=== PATIENT | female | born 1960 | race Caucasian/White ===

== ENCOUNTER 2018-02-26 18:12 | Emergency (ER) | payer MEDICAID ==
[~2018-02-26] VITALS: Ht 160 cm; Wt 70.0 kg
[2018-02-26] MEDS ORDERED: HYDROCODONE/ACETAMINOPHEN 5/325MG TABLET PO ONE (23:30)
[2018-02-27 01:44] LABS: BASOPHILS % 0.7 % (0.0-2.0); EOSINOPHILS % 3.6 % (0.0-5.0); HEMOGLOBIN. 7.8 g/dL (12.0-16.0); LYMPHOCYTES % 10.1 % (20.0-50.0); MEAN CORPUSCULAR HEMOGLOBIN 30.8 pg (28.0-32.0); MEAN CORPUSCULAR VOLUME 91.3 fL (81.0-99.0); MEAN PLATELET VOLUME 8.4 fl (7.4-10.4); MONOCYTES % 9.3 % (2.0-8.0); NEUTROPHILS % 76.3 % (40.0-76.0); PLATELET 136 x1000/uL (130-400); RED BLOOD CELL COUNT 2.52 mill/uL (4.2-5.4)
[2018-02-27 04:45] VITALS: BP 153/99
== END 2018-02-27 05:10 | disposition home or self-care (01) ==
LOC: ER 18:12
DX: S40.011A Contusion of right shoulder, initial encounter (principal); S09.8XXA Other specified injuries of head, initial encounter; D64.9 Anemia, unspecified; I10 Essential (primary) hypertension; W07.XXXA Fall from chair, initial encounter; Y93.89 Activity, other specified; Y92.89 Other specified places as the place of occurrence of the external cause; Y99.8 Other external cause status; Z86.73 Personal history of transient ischemic attack (TIA), and cerebral infarction without residual deficits
CPT/HCPCS: 36415; 71045; 73030; 80048; 99285

== ENCOUNTER 2018-07-21 14:27 | Inpatient (IN) | payer MEDICAID ==
[~2018-07-21] VITALS: Ht 154.9 cm; Wt 84.4 kg
[2018-07-21] MEDS ORDERED: ONDANSETRON HCL 4MG/2ML INJ IV STA (21:43)
[2018-07-21] MEDS ORDERED: MORPHINE SULFATE 4 MG/ML CPJ (NOT FOR IM USE) IV STA (21:43)
[2018-07-21 23:13] LABS: BASOPHILS % 1.4 % (0.0-2.0); EOSINOPHILS % 4.5 % (0.0-5.0); HEMATOCRIT. 25.7 % (36.0-48.0); HEMOGLOBIN. 8.5 g/dL (12.0-16.0); LYMPHOCYTES % 16.5 % (20.0-50.0); MEAN CORPUSCULAR HEMOGLOBIN 29.7 pg (28.0-32.0); MEAN CORPUSCULAR VOLUME 89.9 fL (81.0-99.0); MONOCYTES % 7.1 % (2.0-8.0); NEUTROPHILS % 70.5 % (40.0-76.0); PLATELET 205 x1000/uL (130-400); RED BLOOD CELL COUNT 2.86 mill/uL (4.2-5.4); RED CELL DISTRIBUTION WIDTH 17.1 % (11.6-14.6)
[2018-07-21 23:19] LABS: CHLORIDE 98 mEq/L (98-107)
[2018-07-21 23:24] LABS: INR 1.2; PARTIAL THROMBOPLASTIN TIME 31.7 sec (23.4-31.0); PROTHROMBIN TIME 11.7 sec (9.1-11.1)
[2018-07-22] MEDS ORDERED: INSULIN REGULAR (HUMULIN R) 300UNITS/3ML IV ONE (00:30)
[2018-07-22] MEDS ORDERED: SODIUM POLYSTYRENE SULFONATE 15 G/60 ML BOT PO ONE (00:30)
[2018-07-22] MEDS ORDERED: DEXTROSE 50% WATER 50ML SYRINGE IV ONE (00:30)
[2018-07-22] MEDS ORDERED: SODIUM BICARBONATE 8.4% 1 MEQ/ML 50ML SYR IV ONE (00:30)
[2018-07-22] MEDS ORDERED: ALBUTEROL (0.083%) 2.5MG/3ML NEB HHN ONE (00:30)
[2018-07-22] MEDS ORDERED: ALBUTEROL (0.5%) 2.5MG/0.5ML NEB HHN ONE (01:07)
[2018-07-22] MEDS: MORPHINE SULFATE 4 MG/ML CPJ (NOT FOR IM USE) IV PRN ×3 (05:52→17:25)
[2018-07-22] MEDS ORDERED: MAGNESIUM/ALUMINUM HYDROXIDE/SIMETHICONE 30ML UDC PO PRN (09:15)
[2018-07-22] MEDS ORDERED: CLONIDINE 0.1MG TABLET PO PRN (09:15)
[2018-07-22] MEDS ORDERED: DOCUSATE SODIUM 100MG CAPSULE PO PRN (09:15)
[2018-07-22] MEDS ORDERED: ONDANSETRON HCL 4MG/2ML INJ IV PRN (09:15)
[2018-07-22] MEDS ORDERED: GUAIFENESIN 200MG/10ML SUGAR FREE UDC PO PRN (09:15)
[2018-07-22] MEDS ORDERED: IPRATROPIUM/ALBUTEROL 0.5-3(2.5)MG/3ML NEB INH PRN (09:15)
[2018-07-22] MEDS: HYDROCODONE/ACETAMINOPHEN 5/325MG TABLET PO PRN ×2 (11:11→20:50)
[2018-07-22 11:17] LABS: PHOSPHORUS 5.7 mg/dL (2.5-4.9)
[2018-07-22 14:14] VITALS: BP 101/53
[2018-07-22] MEDS ORDERED: PNEUMOCOCCAL 23-VAL P-SAC VAC 0.5 ML IM ONE (16:00)
[2018-07-22] MEDS: LOSARTAN POTASSIUM 25 MG TABLET PO SCH (16:50)
[2018-07-22] MEDS ORDERED: METH500T6 MT (17:43)
[2018-07-22] MEDS ORDERED: ASPI-1158 MT (17:43)
[2018-07-22] MEDS ORDERED: SENN-46 MT (17:43)
[2018-07-22] MEDS ORDERED: VITA1CAP MT (17:43)
[2018-07-22] MEDS ORDERED: REN800 MT (17:43)
[2018-07-22] MEDS ORDERED: ATOR40TA70 MT (17:43)
[2018-07-22] MEDS ORDERED: LEVO100T9 MT (17:43)
[2018-07-22] MEDS ORDERED: FERR325T6 MT (17:43)
[2018-07-22] MEDS ORDERED: POLY1POW14 MC (17:43)
[2018-07-22] MEDS ORDERED: AMLO5TAB88 MT (17:43)
[2018-07-22] MEDS ORDERED: CARV3.1242 MT (17:43)
[2018-07-22] MEDS ORDERED: FOLI-43 MT (17:43)
[2018-07-22] MEDS ORDERED: POLY17PO19 PO (17:43)
[2018-07-22] MEDS ORDERED: HYDR-4001 MT (17:43)
[2018-07-22 20:00] VITALS: BP 132/68
[2018-07-22] MEDS: AMLODIPINE 5MG TABLET PO SCH (20:51)
[2018-07-22] MEDS: EPOETIN ALFA 10000UNITS/ML VIAL SUBCUT SCH (20:51)
[2018-07-22] MEDS: IRON SUCROSE COMPLEX 100 MG/5 ML ML IV SCH (21:05)
[2018-07-22] MEDS ORDERED: TUBERCULIN,PURIF.PROT.DERIV. 5 TU/0.1 ML SYR ID ONE (23:00)
[2018-07-23] VITALS: BP 140/70
[2018-07-23] MEDS: HYDROCODONE/ACETAMINOPHEN 5/325MG TABLET PO PRN ×2 (02:49→17:43)
[2018-07-23 04:00] VITALS: BP 120/67
[2018-07-23 08:00] VITALS: BP 160/82
[2018-07-23 12:00] VITALS: BP 115/53
[2018-07-23] MEDS: LOSARTAN POTASSIUM 25 MG TABLET PO SCH ×2 (12:01→16:03)
[2018-07-23] MEDS: AMLODIPINE 5MG TABLET PO SCH ×2 (12:02→20:29)
[2018-07-23] MEDS: MORPHINE SULFATE 4 MG/ML CPJ (NOT FOR IM USE) IV PRN ×3 (12:02→20:28)
[2018-07-23 16:00] VITALS: BP 131/68
[2018-07-23] MEDS: SODIUM HYPOCHLORITE 0.125% 473ML SOLUTION TOP SCH (16:03)
[2018-07-23] MEDS: NYSTATIN POWDER 15GM TOP SCH ×2 (16:03→22:00)
[2018-07-23 20:00] VITALS: BP 152/86
[2018-07-23] MEDS: IRON SUCROSE COMPLEX 100 MG/5 ML ML IV SCH (20:28)
[2018-07-23] MEDS: EPOETIN ALFA 10000UNITS/ML VIAL SUBCUT SCH (20:29)
[2018-07-23] MEDS: DIPHENHYDRAMINE 50MG/ML VIAL IV PRN (21:46)
[2018-07-24] MEDS: DIPHENHYDRAMINE 50MG/ML VIAL IV PRN ×2 (00:23→17:12)
[2018-07-24] MEDS: MORPHINE SULFATE 4 MG/ML CPJ (NOT FOR IM USE) IV PRN ×4 (00:33→20:27)
[2018-07-24 04:00] VITALS: BP 147/75
[2018-07-24] MEDS: NYSTATIN POWDER 15GM TOP SCH ×3 (06:52→21:15)
[2018-07-24 08:08] VITALS: BP 136/63
[2018-07-24] MEDS: AMLODIPINE 5MG TABLET PO SCH ×2 (08:10→20:27)
[2018-07-24] MEDS: SODIUM HYPOCHLORITE 0.125% 473ML SOLUTION TOP SCH (08:10)
[2018-07-24] MEDS: LOSARTAN POTASSIUM 25 MG TABLET PO SCH ×2 (08:10→16:42)
[2018-07-24 09:00] LABS: EOSINOPHILS % 3.9 % (0.0-5.0); HEMATOCRIT. 28.6 % (36.0-48.0); HEMOGLOBIN. 9.5 g/dL (12.0-16.0); LYMPHOCYTES % 12.5 % (20.0-50.0); MEAN CORPUSCULAR HEMOGLOBIN 29.7 pg (28.0-32.0); MONOCYTES % 6.1 % (2.0-8.0); NEUTROPHILS % 76.5 % (40.0-76.0); PLATELET 254 x1000/uL (130-400); RED BLOOD CELL COUNT 3.18 mill/uL (4.2-5.4); RED CELL DISTRIBUTION WIDTH 16.9 % (11.6-14.6)
[2018-07-24 09:28] LABS: CHLORIDE 103 mEq/L (98-107)
[2018-07-24 09:42] LABS: FOLIC ACID (FOLATE) SERUM >20 ng/mL ng/mL (>5.38)
[2018-07-24 09:45] LABS: LDL CHOLESTEROL 39 mg/dL (5-100)
[2018-07-24 09:47] LABS: CREATINE KINASE 134 IU/L (26-192)
[2018-07-24 09:49] LABS: HDL CHOLESTEROL 36 mg/dL (40-59)
[2018-07-24 09:51] LABS: CREATINE KINASE MB FRACTION 6.4 ng/mL (0.5-3.6)
[2018-07-24 09:53] LABS: VITAMIN B12 SERUM 763 pg/mL (211-911)
[2018-07-24 11:59] VITALS: BP 147/63
[2018-07-24] MEDS ORDERED: VANCOMYCIN HCL 500 MG/VIAL ONE (15:00)
[2018-07-24] MEDS ORDERED: BACITRACIN 15GM TUBE TOP ONE (15:00)
[2018-07-24 16:00] VITALS: BP 125/65
[2018-07-24] MEDS ORDERED: POTASSIUM CHLORIDE 20MEQ TABLET SR PO NR (16:15)
[2018-07-24 20:12] VITALS: BP 135/90
[2018-07-24] MEDS: IRON SUCROSE COMPLEX 100 MG/5 ML ML IV SCH (20:27)
[2018-07-24] MEDS: EPOETIN ALFA 10000UNITS/ML VIAL SUBCUT SCH (21:00)
[2018-07-25] VITALS: BP 146/84
[2018-07-25] MEDS: MORPHINE SULFATE 4 MG/ML CPJ (NOT FOR IM USE) IV PRN ×3 (01:08→20:11)
[2018-07-25] MEDS: DIPHENHYDRAMINE 50MG/ML VIAL IV PRN ×3 (03:31→21:07)
[2018-07-25 04:00] VITALS: BP 135/72
[2018-07-25] MEDS: NYSTATIN POWDER 15GM TOP SCH ×3 (05:40→20:13)
[2018-07-25 07:13] LABS: BASOPHILS % 0.5 % (0.0-2.0); EOSINOPHILS % 1.5 % (0.0-5.0); HEMATOCRIT. 28.1 % (36.0-48.0); HEMOGLOBIN. 9.3 g/dL (12.0-16.0); MEAN CORPUSCULAR HEMOGLOBIN 30.1 pg (28.0-32.0); MEAN CORPUSCULAR VOLUME 90.6 fL (81.0-99.0); MEAN PLATELET VOLUME 7.2 fl (7.4-10.4); MONOCYTES % 5.6 % (2.0-8.0); NEUTROPHILS % 80.4 % (40.0-76.0); PLATELET 251 x1000/uL (130-400); RED CELL DISTRIBUTION WIDTH 16.9 % (11.6-14.6)
[2018-07-25 08:00] VITALS: BP 126/69
[2018-07-25] MEDS: LOSARTAN POTASSIUM 25 MG TABLET PO SCH ×2 (08:59→16:18)
[2018-07-25] MEDS: AMLODIPINE 5MG TABLET PO SCH ×2 (08:59→20:14)
[2018-07-25] MEDS: SODIUM HYPOCHLORITE 0.125% 473ML SOLUTION TOP SCH (11:14)
[2018-07-25 12:00] VITALS: BP 131/67
[2018-07-25 20:00] VITALS: BP 141/78
[2018-07-25] MEDS: IRON SUCROSE COMPLEX 100 MG/5 ML ML IV SCH (20:12)
[2018-07-25] MEDS: EPOETIN ALFA 10000UNITS/ML VIAL SUBCUT SCH (20:13)
[2018-07-26] VITALS: BP 142/81
[2018-07-26] MEDS: ACETAMINOPHEN 325MG TABLET PO PRN ×2 (00:50→21:10)
[2018-07-26] MEDS: DIPHENHYDRAMINE 50MG/ML VIAL IV PRN ×2 (01:10→22:37)
[2018-07-26] MEDS: MORPHINE SULFATE 4 MG/ML CPJ (NOT FOR IM USE) IV PRN ×4 (02:46→21:11)
[2018-07-26 04:00] VITALS: BP 122/68
[2018-07-26] MEDS: NYSTATIN POWDER 15GM TOP SCH ×3 (06:02→22:33)
[2018-07-26 08:00] VITALS: BP_SYST 136; BP_SYST 140; BP_DIAS 70; BP_DIAS 72
[2018-07-26] MEDS: LOSARTAN POTASSIUM 25 MG TABLET PO SCH ×2 (08:47→17:50)
[2018-07-26] MEDS: SODIUM HYPOCHLORITE 0.125% 473ML SOLUTION TOP SCH (08:48)
[2018-07-26] MEDS: AMLODIPINE 5MG TABLET PO SCH ×2 (08:48→21:10)
[2018-07-26 09:58] LABS: BASOPHILS % 0.8 % (0.0-2.0); EOSINOPHILS % 2.5 % (0.0-5.0); HEMOGLOBIN. 9.5 g/dL (12.0-16.0); LYMPHOCYTES % 11.6 % (20.0-50.0); MEAN CORPUSCULAR HEMOGLOBIN 29.4 pg (28.0-32.0); MEAN CORPUSCULAR VOLUME 89.8 fL (81.0-99.0); MONOCYTES % 6.7 % (2.0-8.0); NEUTROPHILS % 78.4 % (40.0-76.0); PLATELET 256 x1000/uL (130-400); RED BLOOD CELL COUNT 3.23 mill/uL (4.2-5.4); RED CELL DISTRIBUTION WIDTH 17.5 % (11.6-14.6)
[2018-07-26 12:00] VITALS: BP 136/72
[2018-07-26 16:00] VITALS: BP 115/64
[2018-07-26 20:00] VITALS: BP 121/70
[2018-07-26] MEDS: IRON SUCROSE COMPLEX 100 MG/5 ML ML IV SCH (21:10)
[2018-07-26] MEDS: EPOETIN ALFA 10000UNITS/ML VIAL SUBCUT SCH (22:33)
[2018-07-27] VITALS: BP 113/62
[2018-07-27 04:00] VITALS: BP 106/64
[2018-07-27] MEDS ORDERED: MORPHINE SULFATE 4 MG/ML CPJ (NOT FOR IM USE) IV PRN (05:30)
[2018-07-27] MEDS: NYSTATIN POWDER 15GM TOP SCH ×3 (05:38→21:58)
[2018-07-27 06:36] LABS: BASOPHILS % 0.7 % (0.0-2.0); EOSINOPHILS % 4.4 % (0.0-5.0); HEMATOCRIT. 27.9 % (36.0-48.0); HEMOGLOBIN. 9.1 g/dL (12.0-16.0); LYMPHOCYTES % 16.9 % (20.0-50.0); MEAN CORPUSCULAR HEMOGLOBIN 29.4 pg (28.0-32.0); MEAN CORPUSCULAR VOLUME 90.3 fL (81.0-99.0); MONOCYTES % 8.6 % (2.0-8.0); NEUTROPHILS % 69.4 % (40.0-76.0); PLATELET 236 x1000/uL (130-400); RED BLOOD CELL COUNT 3.09 mill/uL (4.2-5.4); RED CELL DISTRIBUTION WIDTH 18.1 % (11.6-14.6)
[2018-07-27 08:00] VITALS: BP_SYST 105; BP_SYST 112; BP_DIAS 63; BP_DIAS 68
[2018-07-27] MEDS: LOSARTAN POTASSIUM 25 MG TABLET PO SCH ×2 (09:00→16:27)
[2018-07-27] MEDS: AMLODIPINE 5MG TABLET PO SCH ×2 (09:00→20:29)
[2018-07-27 12:00] VITALS: BP 112/68
[2018-07-27] MEDS: MORPHINE SULFATE 4 MG/ML CPJ (NOT FOR IM USE) IV PRN ×2 (12:53→20:28)
[2018-07-27] MEDS: DIPHENHYDRAMINE 50MG/ML VIAL IV PRN (14:55)
[2018-07-27] MEDS: SODIUM HYPOCHLORITE 0.125% 473ML SOLUTION TOP SCH (15:05)
[2018-07-27 16:00] VITALS: BP 119/97
[2018-07-27] MEDS: CEFTRIAXONE 1 G PREMIX 50 ML IV SCH (16:23)
[2018-07-27 20:00] VITALS: BP 129/74
[2018-07-27] MEDS: EPOETIN ALFA 10000UNITS/ML VIAL SUBCUT SCH (20:45)
[2018-07-28] VITALS: BP 109/63
[2018-07-28] MEDS: MORPHINE SULFATE 4 MG/ML CPJ (NOT FOR IM USE) IV PRN ×3 (01:37→19:02)
[2018-07-28 04:00] VITALS: BP 101/52
[2018-07-28] MEDS: NYSTATIN POWDER 15GM TOP SCH ×3 (05:11→22:04)
[2018-07-28] MEDS: ACETAMINOPHEN 325MG TABLET PO PRN (05:35)
[2018-07-28 08:00] VITALS: BP 99/59
[2018-07-28] MEDS: SODIUM HYPOCHLORITE 0.125% 473ML SOLUTION TOP SCH (08:48)
[2018-07-28] MEDS: AMLODIPINE 5MG TABLET PO SCH ×2 (09:00→21:00)
[2018-07-28] MEDS: LOSARTAN POTASSIUM 25 MG TABLET PO SCH ×2 (09:00→16:33)
[2018-07-28 09:04] LABS: BASOPHILS % 1.3 % (0.0-2.0); EOSINOPHILS % 4.8 % (0.0-5.0); HEMATOCRIT. 24.9 % (36.0-48.0); HEMOGLOBIN. 8.1 g/dL (12.0-16.0); LYMPHOCYTES % 19.8 % (20.0-50.0); MEAN CORPUSCULAR HEMOGLOBIN 29.5 pg (28.0-32.0); MEAN CORPUSCULAR VOLUME 90.5 fL (81.0-99.0); MEAN PLATELET VOLUME 6.8 fl (7.4-10.4); MONOCYTES % 9.3 % (2.0-8.0); NEUTROPHILS % 64.8 % (40.0-76.0); PLATELET 225 x1000/uL (130-400); RED BLOOD CELL COUNT 2.75 mill/uL (4.2-5.4); RED CELL DISTRIBUTION WIDTH 17.7 % (11.6-14.6)
[2018-07-28] MEDS: DIPHENHYDRAMINE 50MG/ML VIAL IV PRN ×2 (11:16→22:01)
[2018-07-28 12:00] VITALS: BP 106/64
[2018-07-28] MEDS: TRAMADOL 50MG TABLET PO NR ×2 (13:30→13:45)
[2018-07-28] MEDS: CEFTRIAXONE 1 G PREMIX 50 ML IV SCH (15:32)
[2018-07-28 16:00] VITALS: BP 99/55
[2018-07-28 20:00] VITALS: BP 116/63
[2018-07-29] VITALS (7 sets, daily range): BP systolic 105–144; BP diastolic 54–90
[2018-07-29] MEDS: ACETAMINOPHEN 325MG TABLET PO PRN (00:32)
[2018-07-29] MEDS: MORPHINE SULFATE 4 MG/ML CPJ (NOT FOR IM USE) IV PRN ×3 (00:33→19:00)
[2018-07-29] MEDS: NYSTATIN POWDER 15GM TOP SCH ×3 (06:05→22:50)
[2018-07-29 06:33] LABS: BASOPHILS % 1.1 % (0.0-2.0); EOSINOPHILS % 6.2 % (0.0-5.0); HEMATOCRIT. 25.4 % (36.0-48.0); HEMOGLOBIN. 8.3 g/dL (12.0-16.0); LYMPHOCYTES % 16.2 % (20.0-50.0); MEAN CORPUSCULAR HEMOGLOBIN 29.6 pg (28.0-32.0); MEAN CORPUSCULAR VOLUME 90.6 fL (81.0-99.0); MEAN PLATELET VOLUME 7.3 fl (7.4-10.4); MONOCYTES % 9.2 % (2.0-8.0); NEUTROPHILS % 67.3 % (40.0-76.0); PLATELET 234 x1000/uL (130-400); RED BLOOD CELL COUNT 2.81 mill/uL (4.2-5.4); RED CELL DISTRIBUTION WIDTH 17.7 % (11.6-14.6)
[2018-07-29] MEDS: LOSARTAN POTASSIUM 25 MG TABLET PO SCH ×2 (09:07→17:00)
[2018-07-29] MEDS: AMLODIPINE 5MG TABLET PO SCH ×2 (09:07→21:00)
[2018-07-29] MEDS: SODIUM HYPOCHLORITE 0.125% 473ML SOLUTION TOP SCH (09:14)
[2018-07-29] MEDS ORDERED: LOSA25TA3 PO (13:07)
[2018-07-29] MEDS: DIPHENHYDRAMINE 50MG/ML VIAL IV PRN ×2 (13:33→22:50)
[2018-07-29] MEDS: CEFTRIAXONE 1 G PREMIX 50 ML IV SCH (14:36)
[2018-07-30] VITALS: BP 133/58
[2018-07-30] MEDS: MORPHINE SULFATE 4 MG/ML CPJ (NOT FOR IM USE) IV PRN
[2018-07-30] MEDS ORDERED: EPOETIN ALFA 10000UNITS/ML VIAL SUBCUT SCH (21:00)
== END 2018-07-30 01:20 | DRG 425 ==
LOC: ER 14:27 → 8WST 07-22 00:33 → EDBEDREQDT 07-22 00:46 → EDBEDREQTM 07-22 00:46 → EDBEDREQ 07-22 00:46 → ENRESERV 07-22 11:41
PROVIDERS: ADMIT Internal Medicine; ATTEND Internal Medicine
PROC: 5A1D70Z Performance of Urinary Filtration, Intermittent, Less than 6 Hours Per Day (ICD-10-PCS; principal; 2018-07-22)
PROC: 5A1D70Z Performance of Urinary Filtration, Intermittent, Less than 6 Hours Per Day (ICD-10-PCS; 2018-07-23)
PROC: 5A1D70Z Performance of Urinary Filtration, Intermittent, Less than 6 Hours Per Day (ICD-10-PCS; 2018-07-25)
PROC: 5A1D70Z Performance of Urinary Filtration, Intermittent, Less than 6 Hours Per Day (ICD-10-PCS; 2018-07-28)
DX: E87.5 Hyperkalemia (principal); I13.2 Hypertensive heart and chronic kidney disease with heart failure and with stage 5 chronic kidney disease, or end stage renal disease; L89.154 Pressure ulcer of sacral region, stage 4; E43 Unspecified severe protein-calorie malnutrition; E11.22 Type 2 diabetes mellitus with diabetic chronic kidney disease; E83.39 Other disorders of phosphorus metabolism; I27.20 Pulmonary hypertension, unspecified; R65.10 Systemic inflammatory response syndrome (SIRS) of non-infectious origin without acute organ dysfunction; E11.51 Type 2 diabetes mellitus with diabetic peripheral angiopathy without gangrene; M84.459A Pathological fracture, hip, unspecified, initial encounter for fracture; E83.41 Hypermagnesemia; E66.9 Obesity, unspecified; I50.9 Heart failure, unspecified; N18.6 End stage renal disease; E83.42 Hypomagnesemia; E87.1 Hypo-osmolality and hyponatremia; Z89.611 Acquired absence of right leg above knee; Z99.2 Dependence on renal dialysis; D63.1 Anemia in chronic kidney disease; N39.0 Urinary tract infection, site not specified; Z89.612 Acquired absence of left leg above knee; Z86.73 Personal history of transient ischemic attack (TIA), and cerebral infarction without residual deficits; Z68.35 Body mass index [BMI] 35.0-35.9, adult
CPT/HCPCS: 36415; 71045; 72192; 73502; 80048; 80061; 82140; 82550; 82553; 82607; 82746; 83036; 83735; 83880; 84100; 84134; 84145; 84443; 84484; 86706; 86850; 86900; 87070; 87075; 87340; 90585; 90732; 93005; 93306; 93970; 94640; 96374; 96375; 97163; 97167; 99285; C1893; J0696; J0885; J1200; J1815; J2270; J2405; J3370; J3490; J7040; J7050; J7611

== ENCOUNTER 2018-09-02 16:27 | Inpatient (IN) | payer MEDICAID ==
[~2018-09-02] VITALS: Ht 154.9 cm; Wt 68.5 kg
[~2018-09-02 16:27] MED LIST: ASPI-1158 MT; ATOR40TA70 MT; CARV3.1242 MT; FERR325T6 MT; FOLI-43 MT; HYDR-4001 MT; LEVO100T9 MT; LOSA25TA3 PO; METH500T6 MT; POLY17PO19 PO; POLY1POW14 MC; REN800 MT; SENN-46 MT; VITA1CAP MT
[2018-09-02 18:15] LABS: BASOPHILS % 1.1 % (0.0-2.0); HEMATOCRIT. 32.4 % (36.0-48.0); HEMOGLOBIN. 10.5 g/dL (12.0-16.0); LYMPHOCYTES % 16.1 % (20.0-50.0); MEAN CORPUSCULAR HEMOGLOBIN 29.3 pg (28.0-32.0); MEAN CORPUSCULAR VOLUME 90.4 fL (81.0-99.0); MEAN PLATELET VOLUME 7.2 fl (7.4-10.4); MONOCYTES % 7.6 % (2.0-8.0); NEUTROPHILS % 72.2 % (40.0-76.0); PLATELET 174 x1000/uL (130-400); RED BLOOD CELL COUNT 3.59 mill/uL (4.2-5.4); RED CELL DISTRIBUTION WIDTH 18.6 % (11.6-14.6)
[2018-09-02 18:21] LABS: CHLORIDE 96 mEq/L (98-107)
[2018-09-02 18:26] LABS: ETHANOL BLOOD < 10 mg/dL
[2018-09-02 18:27] LABS: PHOSPHORUS 4.2 mg/dL (2.5-4.9)
[2018-09-02] MEDS ORDERED: FUROSEMIDE 100MG/10ML VIAL IVP ONE (18:30)
[2018-09-02 18:36] LABS: *AMPHETAMINES SCREEN URINE NEGATIVE (NEGATIVE); *BARBITURATES SCREEN URINE NEGATIVE (NEGATIVE); *BENZODIAZEPINES SCREEN URINE NEGATIVE (NEGATIVE); *COCAINE SCREEN URINE NEGATIVE (NEGATIVE)
[2018-09-02 18:37] LABS: CANNABINOID URINE SCREEN NEGATIVE (NEGATIVE); METHADONE URINE SCREEN NEGATIVE (NEGATIVE); OPIATES URINE SCREEN NEGATIVE (NEGATIVE); PHENCYCLIDINE URINE SCREEN NEGATIVE (NEGATIVE)
[2018-09-02] MEDS ORDERED: HYDRALAZINE 20MG/ML VIAL IV PRN (20:45)
[2018-09-02] MEDS ORDERED: ONDANSETRON HCL 4MG/2ML INJ IV PRN (20:45)
[2018-09-02] MEDS ORDERED: ACETAMINOPHEN 325MG TABLET PO PRN (20:45)
[2018-09-02] MEDS ORDERED: IPRATROPIUM/ALBUTEROL 0.5-3(2.5)MG/3ML NEB HHN PRN (20:45)
[2018-09-02] MEDS: ATORVASTATIN CALCIUM 40MG TABLET PO SCH (22:53)
[2018-09-02] MEDS: HYDROCODONE/ACETAMINOPHEN 5/325MG TABLET PO PRN (22:53)
[2018-09-02] MEDS: ZOLPIDEM TARTRATE 5MG TABLET PO PRN (22:54)
[2018-09-02] MEDS: AMLODIPINE 5MG TABLET PO SCH (22:54)
[2018-09-02 23:00] VITALS: BP 140/53
[2018-09-03] MEDS ORDERED: AMLO5TAB88 PO (02:26)
[2018-09-03] MEDS ORDERED: BISA10SU62 RC (02:26)
[2018-09-03] MEDS ORDERED: LOSA25TA12 PO (02:26)
[2018-09-03] MEDS ORDERED: [UNRECOGNIZED DRUG - CODE] OP (02:26)
[2018-09-03] MEDS ORDERED: DOCU-150 PO (02:26)
[2018-09-03] MEDS ORDERED: IPRA3AMP31 IH (02:26)
[2018-09-03] MEDS ORDERED: CLON0.1T PO (02:26)
[2018-09-03] MEDS ORDERED: FERR220S12 PO (02:26)
[2018-09-03] MEDS ORDERED: MOM PO (02:32)
[2018-09-03] MEDS ORDERED: REN800 PO (02:32)
[2018-09-03] MEDS ORDERED: AMIN30LI2 PO (02:32)
[2018-09-03] MEDS ORDERED: HYDR-4001 PO (02:32)
[2018-09-03] MEDS ORDERED: ACET-2178 PO (02:32)
[2018-09-03] MEDS ORDERED: ONDA4TAB11 PO (02:32)
[2018-09-03] MEDS ORDERED: NEPVIT PO (02:32)
[2018-09-03] MEDS ORDERED: ASCO125T PO (02:35)
[2018-09-03] MEDS: HYDROCODONE/ACETAMINOPHEN 5/325MG TABLET PO PRN ×4 (02:51→20:03)
[2018-09-03 04:00] VITALS: BP 124/56
[2018-09-03 07:17] LABS: BASOPHILS % 1.7 % (0.0-2.0); EOSINOPHILS % 5.3 % (0.0-5.0); HEMATOCRIT. 30.3 % (36.0-48.0); LYMPHOCYTES % 22.7 % (20.0-50.0); MEAN CORPUSCULAR VOLUME 90.8 fL (81.0-99.0); MEAN PLATELET VOLUME 7.8 fl (7.4-10.4); MONOCYTES % 8.5 % (2.0-8.0); NEUTROPHILS % 61.8 % (40.0-76.0); PLATELET 173 x1000/uL (130-400); RED BLOOD CELL COUNT 3.34 mill/uL (4.2-5.4)
[2018-09-03 08:00] VITALS: BP 130/63
[2018-09-03] MEDS: AMLODIPINE 5MG TABLET PO SCH ×2 (09:00→21:51)
[2018-09-03] MEDS: POLYETHYLENE GLYCOL 3350 (17GM) 1 DOSE PACK PO SCH ×2 (09:00→09:33)
[2018-09-03] MEDS: SEVELAMER CARBONATE 800 MG TABLET PO SCH ×3 (09:30→18:47)
[2018-09-03] MEDS ORDERED: HEPARIN SODIUM 1,000 UNIT/1ML VIAL IV SCH (11:30)
[2018-09-03] MEDS: DIPHENHYDRAMINE 50MG/ML VIAL IV PRN (15:27)
[2018-09-03 20:00] VITALS: BP 140/79
[2018-09-03] MEDS: ZOLPIDEM TARTRATE 5MG TABLET PO PRN (21:51)
[2018-09-03] MEDS: ATORVASTATIN CALCIUM 40MG TABLET PO SCH (21:51)
[2018-09-03] MEDS: ENOXAPARIN 30MG/0.3ML SYR SUBCUT SCH (21:57)
[2018-09-04] VITALS: BP 143/63
[2018-09-04 04:00] VITALS: BP 141/86
[2018-09-04] MEDS: HYDROCODONE/ACETAMINOPHEN 5/325MG TABLET PO PRN ×3 (05:02→17:46)
[2018-09-04] MEDS: DIPHENHYDRAMINE 50MG/ML VIAL IV PRN ×3 (05:44→23:25)
[2018-09-04 06:58] LABS: BASOPHILS % 1.6 % (0.0-2.0); EOSINOPHILS % 5.6 % (0.0-5.0); HEMATOCRIT. 31.8 % (36.0-48.0); HEMOGLOBIN. 10.3 g/dL (12.0-16.0); MEAN CORPUSCULAR HEMOGLOBIN 29.5 pg (28.0-32.0); MEAN CORPUSCULAR VOLUME 91.1 fL (81.0-99.0); MONOCYTES % 6.6 % (2.0-8.0); NEUTROPHILS % 66.2 % (40.0-76.0); PLATELET 184 x1000/uL (130-400); RED BLOOD CELL COUNT 3.49 mill/uL (4.2-5.4); RED CELL DISTRIBUTION WIDTH 18.2 % (11.6-14.6)
[2018-09-04 08:00] VITALS: BP 178/82
[2018-09-04] MEDS: SEVELAMER CARBONATE 800 MG TABLET PO SCH ×3 (08:35→18:25)
[2018-09-04] MEDS: AMLODIPINE 5MG TABLET PO SCH ×2 (08:35→21:21)
[2018-09-04] MEDS: DOCUSATE SODIUM 250MG CAPSULE PO PRN (08:35)
[2018-09-04] MEDS: POLYETHYLENE GLYCOL 3350 (17GM) 1 DOSE PACK PO SCH (08:41)
[2018-09-04] MEDS: LEVOTHYROXINE SODIUM 100MCG TABLET PO SCH (08:42)
[2018-09-04 12:00] VITALS: BP 145/89
[2018-09-04 16:00] VITALS: BP 143/58
[2018-09-04 20:00] VITALS: BP 149/80
[2018-09-04] MEDS ORDERED: SODIUM HYPOCHLORITE 0.125% 473ML SOLUTION TOP SCH (20:00)
[2018-09-04] MEDS: ENOXAPARIN 30MG/0.3ML SYR SUBCUT SCH (21:21)
[2018-09-04] MEDS: ATORVASTATIN CALCIUM 40MG TABLET PO SCH (21:21)
[2018-09-04] MEDS: ZOLPIDEM TARTRATE 5MG TABLET PO PRN (21:29)
[2018-09-05 00:12] VITALS: BP 152/78
[2018-09-05] MEDS: HYDROCODONE/ACETAMINOPHEN 5/325MG TABLET PO PRN ×4 (01:06→18:00)
[2018-09-05 04:20] VITALS: BP 165/88
[2018-09-05 07:05] LABS: BASOPHILS % 1.4 % (0.0-2.0); EOSINOPHILS % 3.1 % (0.0-5.0); HEMATOCRIT. 31.1 % (36.0-48.0); HEMOGLOBIN. 10.1 g/dL (12.0-16.0); LYMPHOCYTES % 24.5 % (20.0-50.0); MEAN CORPUSCULAR HEMOGLOBIN 29.6 pg (28.0-32.0); MEAN PLATELET VOLUME 8.2 fl (7.4-10.4); MONOCYTES % 7.7 % (2.0-8.0); NEUTROPHILS % 63.3 % (40.0-76.0); PLATELET 168 x1000/uL (130-400); RED BLOOD CELL COUNT 3.42 mill/uL (4.2-5.4); RED CELL DISTRIBUTION WIDTH 18.3 % (11.6-14.6)
[2018-09-05] MEDS: DIPHENHYDRAMINE 50MG/ML VIAL IV PRN ×3 (07:54→22:38)
[2018-09-05] MEDS: LEVOTHYROXINE SODIUM 100MCG TABLET PO SCH (07:54)
[2018-09-05 08:00] VITALS: BP 143/73
[2018-09-05] MEDS: SEVELAMER CARBONATE 800 MG TABLET PO SCH ×3 (08:48→18:14)
[2018-09-05] MEDS: POLYETHYLENE GLYCOL 3350 (17GM) 1 DOSE PACK PO SCH (08:51)
[2018-09-05] MEDS: DOCUSATE SODIUM 250MG CAPSULE PO PRN (08:51)
[2018-09-05] MEDS: AMLODIPINE 5MG TABLET PO SCH ×2 (08:51→20:53)
[2018-09-05] MEDS: SODIUM HYPOCHLORITE 0.125% 473ML SOLUTION TOP SCH (08:53)
[2018-09-05] MEDS ORDERED: SODIUM HYPOCHLORITE 0.125% 473ML SOLUTION TOP SCH (09:00)
[2018-09-05 12:00] VITALS: BP 148/79
[2018-09-05 16:00] VITALS: BP 144/85
[2018-09-05 20:00] VITALS: BP 150/60
[2018-09-05] MEDS: ZOLPIDEM TARTRATE 5MG TABLET PO PRN (20:52)
[2018-09-05] MEDS: ENOXAPARIN 30MG/0.3ML SYR SUBCUT SCH (20:53)
[2018-09-05] MEDS: ATORVASTATIN CALCIUM 40MG TABLET PO SCH (20:53)
[2018-09-05] MEDS ORDERED: MORPHINE SULFATE 4 MG/ML CPJ (NOT FOR IM USE) IV NR (22:15)
[2018-09-05] MEDS: BENAZEPRIL 10MG TABLET PO SCH (22:30)
[2018-09-05] MEDS ORDERED: IRON SUCROSE COMPLEX 100 MG/5 ML ML IV NR (23:00)
[2018-09-06] VITALS: BP 142/61
[2018-09-06] MEDS: HYDROCODONE/ACETAMINOPHEN 5/325MG TABLET PO PRN ×3 (01:12→14:00)
[2018-09-06 04:00] VITALS: BP 125/62
[2018-09-06] MEDS: LEVOTHYROXINE SODIUM 100MCG TABLET PO SCH (05:11)
[2018-09-06] MEDS: DIPHENHYDRAMINE 50MG/ML VIAL IV PRN ×4 (05:11→19:49)
[2018-09-06 06:02] LABS: BASOPHILS % 1.8 % (0.0-2.0); EOSINOPHILS % 6.6 % (0.0-5.0); HEMATOCRIT. 29.7 % (36.0-48.0); HEMOGLOBIN. 9.7 g/dL (12.0-16.0); LYMPHOCYTES % 28.8 % (20.0-50.0); MEAN CORPUSCULAR HEMOGLOBIN 29.4 pg (28.0-32.0); MEAN CORPUSCULAR VOLUME 90.3 fL (81.0-99.0); MEAN PLATELET VOLUME 8.4 fl (7.4-10.4); MONOCYTES % 6.7 % (2.0-8.0); NEUTROPHILS % 56.1 % (40.0-76.0); PLATELET 173 x1000/uL (130-400); RED BLOOD CELL COUNT 3.29 mill/uL (4.2-5.4)
[2018-09-06 08:00] VITALS: BP 118/61
[2018-09-06] MEDS: AMLODIPINE 5MG TABLET PO SCH ×2 (08:29→20:35)
[2018-09-06] MEDS: SEVELAMER CARBONATE 800 MG TABLET PO SCH ×3 (08:29→18:20)
[2018-09-06] MEDS: DOCUSATE SODIUM 250MG CAPSULE PO PRN (08:30)
[2018-09-06] MEDS: BENAZEPRIL 10MG TABLET PO SCH (08:30)
[2018-09-06] MEDS: POLYETHYLENE GLYCOL 3350 (17GM) 1 DOSE PACK PO SCH (08:30)
[2018-09-06] MEDS: SODIUM HYPOCHLORITE 0.125% 473ML SOLUTION TOP SCH (08:37)
[2018-09-06 12:00] VITALS: BP 119/78
[2018-09-06 16:00] VITALS: BP 143/76
[2018-09-06] MEDS: MORPHINE SULFATE 4 MG/ML CPJ (NOT FOR IM USE) IV PRN ×2 (16:18→20:36)
[2018-09-06 19:48] VITALS: BP 133/67
[2018-09-06] MEDS: ENOXAPARIN 30MG/0.3ML SYR SUBCUT SCH (20:35)
[2018-09-06] MEDS: ATORVASTATIN CALCIUM 40MG TABLET PO SCH (20:35)
[2018-09-06] MEDS: IRON SUCROSE COMPLEX 100 MG/5 ML ML IV SCH (23:30)
[2018-09-07] VITALS: BP 130/74
[2018-09-07] MEDS: MORPHINE SULFATE 4 MG/ML CPJ (NOT FOR IM USE) IV PRN ×3 (03:21→21:14)
[2018-09-07] MEDS: DIPHENHYDRAMINE 50MG/ML VIAL IV PRN ×2 (04:33→14:34)
[2018-09-07 08:00] VITALS: BP 143/75
[2018-09-07] MEDS: DOCUSATE SODIUM 250MG CAPSULE PO PRN (08:10)
[2018-09-07] MEDS: SEVELAMER CARBONATE 800 MG TABLET PO SCH ×3 (08:10→17:33)
[2018-09-07] MEDS: LEVOTHYROXINE SODIUM 100MCG TABLET PO SCH (08:10)
[2018-09-07] MEDS: AMLODIPINE 5MG TABLET PO SCH ×2 (08:12→21:13)
[2018-09-07] MEDS: POLYETHYLENE GLYCOL 3350 (17GM) 1 DOSE PACK PO SCH (08:13)
[2018-09-07] MEDS: BENAZEPRIL 10MG TABLET PO SCH (08:13)
[2018-09-07] MEDS: SODIUM HYPOCHLORITE 0.125% 473ML SOLUTION TOP SCH (08:14)
[2018-09-07] MEDS: HYDROCODONE/ACETAMINOPHEN 5/325MG TABLET PO PRN ×2 (08:24→17:34)
[2018-09-07 12:00] VITALS: BP 137/80
[2018-09-07 16:00] VITALS: BP 126/79
[2018-09-07 20:22] VITALS: BP 138/89
[2018-09-07] MEDS: ATORVASTATIN CALCIUM 40MG TABLET PO SCH (21:13)
[2018-09-07] MEDS: ENOXAPARIN 30MG/0.3ML SYR SUBCUT SCH (21:14)
[2018-09-07] MEDS: IRON SUCROSE COMPLEX 100 MG/5 ML ML IV SCH (23:40)
[2018-09-08] VITALS: BP 130/74
[2018-09-08 04:00] VITALS: BP 142/73
[2018-09-08] MEDS: LEVOTHYROXINE SODIUM 100MCG TABLET PO SCH ×2 (06:29→09:19)
[2018-09-08 06:33] LABS: BASOPHILS % 1.3 % (0.0-2.0); EOSINOPHILS % 5.7 % (0.0-5.0); HEMATOCRIT. 30.2 % (36.0-48.0); HEMOGLOBIN. 9.8 g/dL (12.0-16.0); MEAN CORPUSCULAR HEMOGLOBIN 29.5 pg (28.0-32.0); MEAN CORPUSCULAR VOLUME 91.2 fL (81.0-99.0); MEAN PLATELET VOLUME 8.2 fl (7.4-10.4); MONOCYTES % 7.6 % (2.0-8.0); NEUTROPHILS % 66.4 % (40.0-76.0); PLATELET 175 x1000/uL (130-400); RED BLOOD CELL COUNT 3.31 mill/uL (4.2-5.4); RED CELL DISTRIBUTION WIDTH 17.8 % (11.6-14.6)
[2018-09-08 08:00] VITALS: BP 116/75
[2018-09-08] MEDS: POLYETHYLENE GLYCOL 3350 (17GM) 1 DOSE PACK PO SCH (09:00)
[2018-09-08] MEDS: BENAZEPRIL 10MG TABLET PO SCH (09:00)
[2018-09-08] MEDS: AMLODIPINE 5MG TABLET PO SCH (09:00)
[2018-09-08] MEDS: SEVELAMER CARBONATE 800 MG TABLET PO SCH ×3 (09:19→17:54)
[2018-09-08] MEDS: MORPHINE SULFATE 4 MG/ML CPJ (NOT FOR IM USE) IV PRN ×2 (09:20→16:55)
[2018-09-08] MEDS: SODIUM HYPOCHLORITE 0.125% 473ML SOLUTION TOP SCH (09:46)
[2018-09-08 12:00] VITALS: BP 120/79
[2018-09-08] MEDS ORDERED: HYDROCODONE/ACETAMINOPHEN 10/325MG TABLET PO PRN (12:00)
[2018-09-08] MEDS: DIPHENHYDRAMINE 50MG/ML VIAL IV PRN (14:12)
[2018-09-08 16:00] VITALS: BP 127/77
[2018-09-08 20:00] VITALS: BP 118/45
[2018-09-08] MEDS: CARVEDILOL 12.5MG TABLET PO SCH (20:52)
[2018-09-08] MEDS: ATORVASTATIN CALCIUM 40MG TABLET PO SCH (20:52)
[2018-09-08] MEDS: ENOXAPARIN 30MG/0.3ML SYR SUBCUT SCH (20:52)
[2018-09-08] MEDS ORDERED: EPOETIN ALFA 4000UNITS/ML VIAL SUBCUT NR ×2 (21:00)
[2018-09-08] MEDS: IRON SUCROSE COMPLEX 100 MG/5 ML ML IV SCH (23:30)
[2018-09-09] VITALS (8 sets, daily range): BP systolic 97–139; BP diastolic 50–79
[2018-09-09] MEDS: MORPHINE SULFATE 4 MG/ML CPJ (NOT FOR IM USE) IV PRN ×4 (03:49→20:28)
[2018-09-09] MEDS: LEVOTHYROXINE SODIUM 100MCG TABLET PO SCH (06:17)
[2018-09-09] MEDS: SEVELAMER CARBONATE 800 MG TABLET PO SCH ×3 (08:10→18:41)
[2018-09-09] MEDS: DIPHENHYDRAMINE 50MG/ML VIAL IV PRN (08:10)
[2018-09-09] MEDS: POLYETHYLENE GLYCOL 3350 (17GM) 1 DOSE PACK PO SCH (09:00)
[2018-09-09] MEDS: BENAZEPRIL 10MG TABLET PO SCH (09:09)
[2018-09-09] MEDS: CARVEDILOL 12.5MG TABLET PO SCH ×2 (09:10→20:29)
[2018-09-09] MEDS: SODIUM HYPOCHLORITE 0.125% 473ML SOLUTION TOP SCH (09:13)
[2018-09-09] MEDS: ENOXAPARIN 30MG/0.3ML SYR SUBCUT SCH (20:29)
[2018-09-09] MEDS: ATORVASTATIN CALCIUM 40MG TABLET PO SCH (20:29)
== END 2018-09-09 21:06 | DRG 194 ==
LOC: ER 16:27 → 7WST 18:51 → EDBEDREQ 19:01 → ENRESERV 20:38 → CANBEDREQ 09-03 06:05
PROVIDERS: ADMIT Internal Medicine; ATTEND Internal Medicine
PROC: 5A1D70Z Performance of Urinary Filtration, Intermittent, Less than 6 Hours Per Day (ICD-10-PCS; principal; 2018-09-02)
PROC: 5A1D70Z Performance of Urinary Filtration, Intermittent, Less than 6 Hours Per Day (ICD-10-PCS; 2018-09-05)
PROC: 5A1D70Z Performance of Urinary Filtration, Intermittent, Less than 6 Hours Per Day (ICD-10-PCS; 2018-09-08)
DX: I13.2 Hypertensive heart and chronic kidney disease with heart failure and with stage 5 chronic kidney disease, or end stage renal disease (principal); L89.154 Pressure ulcer of sacral region, stage 4; I27.20 Pulmonary hypertension, unspecified; E87.8 Other disorders of electrolyte and fluid balance, not elsewhere classified; E44.0 Moderate protein-calorie malnutrition; E88.09 Other disorders of plasma-protein metabolism, not elsewhere classified; B86 Scabies; I42.9 Cardiomyopathy, unspecified; N18.6 End stage renal disease; I50.23 Acute on chronic systolic (congestive) heart failure; Z86.73 Personal history of transient ischemic attack (TIA), and cerebral infarction without residual deficits; Z99.2 Dependence on renal dialysis; I35.0 Nonrheumatic aortic (valve) stenosis; F32.9 Major depressive disorder, single episode, unspecified; D63.8 Anemia in other chronic diseases classified elsewhere; E03.9 Hypothyroidism, unspecified; G47.30 Sleep apnea, unspecified; I49.3 Ventricular premature depolarization; G89.29 Other chronic pain; M84.452 Pathological fracture, left femur; M84.452K Pathological fracture, left femur, subsequent encounter for fracture with nonunion; I73.9 Peripheral vascular disease, unspecified; Z89.611 Acquired absence of right leg above knee; Z91.81 History of falling; Z68.28 Body mass index [BMI] 28.0-28.9, adult
CPT/HCPCS: 36415; 71045; 72170; 80048; 80305; 80320; 83605; 83735; 83880; 84100; 84134; 84484; 93005; 93306; 97163; 97166; 99285; J0885; J1200; J1644; J1650; J2270; J2405; A4315; G0480

== ENCOUNTER 2018-10-01 12:25 | Inpatient (IN) | payer MEDICAID ==
[~2018-10-01] VITALS: Ht 154.9 cm; Wt 67.1 kg
[~2018-10-01 12:25] MED LIST changes: +ACET-2178 PO; +AMIN30LI2 PO; +AMLO5TAB88 PO; +ASCO125T PO; -ASPI-1158 MT; -ATOR40TA70 MT; +BISA10SU62 RC; -CARV3.1242 MT; +CLON0.1T PO; +DOCU-150 PO; +FERR220S12 PO; -FERR325T6 MT; -FOLI-43 MT; -HYDR-4001 MT; +HYDR-4001 PO; +IPRA3AMP31 IH; -LEVO100T9 MT; +LOSA25TA26 PO; -LOSA25TA3 PO; -METH500T6 MT; +MOM PO; +NEPVIT PO; +ONDA4TAB11 PO; -POLY17PO19 PO; -POLY1POW14 MC; -REN800 MT; +REN800 PO; -SENN-46 MT; -VITA1CAP MT; +[UNRECOGNIZED DRUG - CODE] OP
[2018-10-01] MEDS ORDERED: TETANUS, DIPHTHERIA, PERTUSSIS VAC/PF 0.5ML (>7YR OLD) IM ONE (12:45)
[2018-10-01] MEDS ORDERED: BACITRACIN ZINC OINT UDPKT TOP ONE (12:45)
[2018-10-01] MEDS ORDERED: LIDOCAINE 1%/EPI 1:100,000 10 ML VIAL IJ ONE (12:45)
[2018-10-01 13:02] LABS: BASOPHILS % 0.7 % (0.0-2.0); EOSINOPHILS % 1.3 % (0.0-5.0); HEMATOCRIT. 29.4 % (36.0-48.0); HEMOGLOBIN. 9.7 g/dL (12.0-16.0); LYMPHOCYTES % 10.9 % (20.0-50.0); MEAN CORPUSCULAR HEMOGLOBIN 30.6 pg (28.0-32.0); MEAN CORPUSCULAR VOLUME 92.3 fL (81.0-99.0); MEAN PLATELET VOLUME 6.9 fl (7.4-10.4); MONOCYTES % 4.9 % (2.0-8.0); NEUTROPHILS % 82.2 % (40.0-76.0); PLATELET 193 x1000/uL (130-400); RED BLOOD CELL COUNT 3.18 mill/uL (4.2-5.4); RED CELL DISTRIBUTION WIDTH 18.7 % (11.6-14.6)
[2018-10-01 13:09] LABS: CHLORIDE 93 mEq/L (98-107)
[2018-10-01] MEDS ORDERED: LIDOCAINE HCL/EPINEPHRINE 1%-EPI 1:100,000 20 ML VIAL INFIL ONE (13:15)
[2018-10-01] MEDS ORDERED: HYDROCODONE/ACETAMINOPHEN 5/325MG TABLET PO ONE (16:15)
[2018-10-01] MEDS ORDERED: IBUPROFEN 600MG TABLET PO ONE (16:15)
[2018-10-01 20:20] VITALS: BP 119/67
[2018-10-01] MEDS ORDERED: EPOETIN ALFA 4000UNITS/ML VIAL SUBCUT NR (21:00)
[2018-10-01 22:00] VITALS: BP 119/67
[2018-10-01] MEDS ORDERED: CLONIDINE 0.1MG TABLET PO PRN (22:15)
[2018-10-01] MEDS ORDERED: ACETAMINOPHEN 325MG TABLET PO PRN (22:15)
[2018-10-02] VITALS (7 sets, daily range): BP systolic 117–149; BP diastolic 62–81
[2018-10-02] MEDS: HYDROCODONE/ACETAMINOPHEN 5/325MG TABLET PO PRN ×2 (04:39→16:56)
[2018-10-02] MEDS ORDERED: ENOXAPARIN 30MG/0.3ML SYR SUBCUT SCH ×3 (08:30→09:00)
[2018-10-02] MEDS ORDERED: AMLODIPINE 5MG TABLET PO SCH (09:00)
[2018-10-02] MEDS ORDERED: FOLIC ACID/VITAMIN B COMP W-C TABLET PO SCH (09:00)
[2018-10-02] MEDS ORDERED: LOSARTAN POTASSIUM 25 MG TABLET PO SCH (09:00)
[2018-10-02] MEDS: MORPHINE SULFATE 2 MG/ML CPJ (NOT FOR IM USE) IV PRN ×2 (09:02→13:15)
[2018-10-02] MEDS: SEVELAMER CARBONATE 800 MG TABLET PO SCH ×2 (09:13→13:14)
[2018-10-02 16:01] LABS: BASOPHILS % 0.6 % (0.0-2.0); EOSINOPHILS % 1.5 % (0.0-5.0); HEMATOCRIT. 30.3 % (36.0-48.0); HEMOGLOBIN. 10.1 g/dL (12.0-16.0); LYMPHOCYTES % 10.4 % (20.0-50.0); MEAN CORPUSCULAR HEMOGLOBIN 30.9 pg (28.0-32.0); MEAN CORPUSCULAR VOLUME 93.3 fL (81.0-99.0); MEAN PLATELET VOLUME 7.7 fl (7.4-10.4); NEUTROPHILS % 82.5 % (40.0-76.0); PLATELET 198 x1000/uL (130-400); RED BLOOD CELL COUNT 3.25 mill/uL (4.2-5.4); RED CELL DISTRIBUTION WIDTH 18.4 % (11.6-14.6)
== END 2018-10-02 19:20 | DRG 194 ==
LOC: ER 12:34 → 7WST 17:55 → ENRESERV 19:43
PROVIDERS: ADMIT Internal Medicine; ATTEND Internal Medicine
PROC: 0HQ0XZZ Repair Scalp Skin, External Approach (ICD-10-PCS; principal; 2018-10-01)
PROC: 5A1D70Z Performance of Urinary Filtration, Intermittent, Less than 6 Hours Per Day (ICD-10-PCS; 2018-10-01)
DX: I13.2 Hypertensive heart and chronic kidney disease with heart failure and with stage 5 chronic kidney disease, or end stage renal disease (principal); L89.159 Pressure ulcer of sacral region, unspecified stage; I27.20 Pulmonary hypertension, unspecified; E87.5 Hyperkalemia; E87.1 Hypo-osmolality and hyponatremia; E44.1 Mild protein-calorie malnutrition; I42.9 Cardiomyopathy, unspecified; E87.8 Other disorders of electrolyte and fluid balance, not elsewhere classified; I49.8 Other specified cardiac arrhythmias; F32.9 Major depressive disorder, single episode, unspecified; I50.23 Acute on chronic systolic (congestive) heart failure; X58.XXXA Exposure to other specified factors, initial encounter; E03.9 Hypothyroidism, unspecified; D63.8 Anemia in other chronic diseases classified elsewhere; S01.01XA Laceration without foreign body of scalp, initial encounter; I73.9 Peripheral vascular disease, unspecified; N18.6 End stage renal disease; Z86.73 Personal history of transient ischemic attack (TIA), and cerebral infarction without residual deficits; Y93.89 Activity, other specified; Y92.89 Other specified places as the place of occurrence of the external cause; Z89.611 Acquired absence of right leg above knee; Z99.2 Dependence on renal dialysis; Z68.28 Body mass index [BMI] 28.0-28.9, adult
CPT/HCPCS: 36415; 80048; 90715; 93005; 96374; 99285; J0885; J1650; J2270; J3490

== ENCOUNTER 2018-10-15 15:08 | Inpatient (IN) | payer MEDICAID ==
[~2018-10-15] VITALS: Ht 156.2 cm; Wt 65.3 kg
[~2018-10-15 15:08] MED LIST changes: -AMIN30LI2 PO
[2018-10-15] MEDS ORDERED: SODIUM CHLORIDE 0.9% 1,000 ML IV ONE (16:34)
[2018-10-15 17:11] LABS: BASOPHILS % 0.6 % (0.0-2.0); EOSINOPHILS % 1.2 % (0.0-5.0); HEMOGLOBIN. 8.3 g/dL (12.0-16.0); LYMPHOCYTES % 7.7 % (20.0-50.0); MEAN CORPUSCULAR VOLUME 92.8 fL (81.0-99.0); MEAN PLATELET VOLUME 7.1 fl (7.4-10.4); NEUTROPHILS % 85.5 % (40.0-76.0); PLATELET 335 x1000/uL (130-400); RED BLOOD CELL COUNT 2.69 mill/uL (4.2-5.4); RED CELL DISTRIBUTION WIDTH 17.2 % (11.6-14.6)
[2018-10-15 17:13] LABS: CHLORIDE 96 mEq/L (98-107)
[2018-10-15 17:15] LABS: INR 1.2
[2018-10-15] MEDS ORDERED: CLINDAMYCIN 600 MG in DEXTROSE 5% WATER 50 ML IV ONE (19:30)
[2018-10-15] MEDS ORDERED: EPOETIN ALFA 10000UNITS/ML VIAL SUBCUT NR (20:00)
[2018-10-15] MEDS ORDERED: CLINDAMYCIN 600MG PREMIX 50 ML IV NR (20:30)
[2018-10-15] MEDS ORDERED: ACETAMINOPHEN 325MG TABLET PO PRN (20:45)
[2018-10-15] MEDS ORDERED: ONDANSETRON HCL 4MG/2ML INJ IV PRN (20:45)
[2018-10-15] MEDS ORDERED: PIPERACILLIN/TAZ 2.25G PREMIX 50 ML IV NR (22:30)
[2018-10-15 22:45] VITALS: BP 104/64
[2018-10-15 23:00] VITALS: BP 104/64
[2018-10-16] MEDS ORDERED: VANCOMYCIN 1 G PREMIX 200 ML IV NR
[2018-10-16] MEDS: MORPHINE SULFATE 2 MG/ML CPJ (NOT FOR IM USE) IV PRN ×4 (00:45→18:50)
[2018-10-16 04:00] VITALS: BP 101/51
[2018-10-16 05:31] LABS: BASOPHILS % 0.9 % (0.0-2.0); HEMATOCRIT. 26.5 % (36.0-48.0); HEMOGLOBIN. 8.7 g/dL (12.0-16.0); LYMPHOCYTES % 8.9 % (20.0-50.0); MEAN CORPUSCULAR HEMOGLOBIN 30.5 pg (28.0-32.0); MEAN CORPUSCULAR VOLUME 93.4 fL (81.0-99.0); MEAN PLATELET VOLUME 7.3 fl (7.4-10.4); MONOCYTES % 5.9 % (2.0-8.0); NEUTROPHILS % 83.3 % (40.0-76.0); PLATELET 292 x1000/uL (130-400); RED BLOOD CELL COUNT 2.84 mill/uL (4.2-5.4); RED CELL DISTRIBUTION WIDTH 17.4 % (11.6-14.6)
[2018-10-16] MEDS ORDERED: CARV12.545 PO (05:57)
[2018-10-16] MEDS ORDERED: LEVO100T9 PO (05:57)
[2018-10-16] MEDS ORDERED: ALPR-339 PO (05:57)
[2018-10-16] MEDS ORDERED: GABA-531 PO (05:57)
[2018-10-16] MEDS ORDERED: PIPERACILLIN/TAZ 3.375G PREMIX 50 ML IV SCH (06:00)
[2018-10-16 08:00] VITALS: BP 113/65
[2018-10-16] MEDS ORDERED: PIPERACILLIN/TAZ 2.25G PREMIX 50 ML IV SCH (09:00)
[2018-10-16] MEDS: PIPERACILLIN/TAZ 2.25G PREMIX 50 ML IV SCH ×2 (11:42→23:12)
[2018-10-16 12:00] VITALS: BP 113/65
[2018-10-16] MEDS ORDERED: VANCOMYCIN 500 MG PREMIX 100 ML IV NR (14:00)
[2018-10-16] MEDS ORDERED: LIDOCAINE HCL/EPINEPHRINE 1%-EPI 1:100,000 20 ML VIAL INFIL SCH (14:00)
[2018-10-16] MEDS: ENOXAPARIN 30MG/0.3ML SYR SUBCUT SCH (18:50)
[2018-10-16] MEDS: ZOLPIDEM TARTRATE 5MG TABLET PO PRN (23:13)
[2018-10-17 01:38] VITALS: BP 115/52
[2018-10-17 04:00] VITALS: BP 145/58
[2018-10-17] MEDS: MORPHINE SULFATE 2 MG/ML CPJ (NOT FOR IM USE) IV PRN ×3 (05:18→16:22)
[2018-10-17] MEDS: SODIUM HYPOCHLORITE 0.125% 473ML SOLUTION TOP SCH ×2 (05:20→18:00)
[2018-10-17 06:52] LABS: BASOPHILS % 0.6 % (0.0-2.0); EOSINOPHILS % 0.6 % (0.0-5.0); HEMATOCRIT. 30.3 % (36.0-48.0); HEMOGLOBIN. 9.6 g/dL (12.0-16.0); LYMPHOCYTES % 8.4 % (20.0-50.0); MEAN CORPUSCULAR HEMOGLOBIN 30.6 pg (28.0-32.0); MEAN PLATELET VOLUME 7.2 fl (7.4-10.4); MONOCYTES % 4.7 % (2.0-8.0); NEUTROPHILS % 85.7 % (40.0-76.0); PLATELET 326 x1000/uL (130-400); RED BLOOD CELL COUNT 3.15 mill/uL (4.2-5.4); RED CELL DISTRIBUTION WIDTH 17.6 % (11.6-14.6)
[2018-10-17 08:00] VITALS: BP 133/78
[2018-10-17] MEDS: HYDROCODONE/ACETAMINOPHEN 5/325MG TABLET PO PRN (08:02)
[2018-10-17] MEDS ORDERED: LIDOCAINE HCL/EPINEPHRINE 1%-EPI 1:100,000 20 ML VIAL INFIL NR (09:45)
[2018-10-17 12:00] VITALS: BP 116/70
[2018-10-17] MEDS: PIPERACILLIN/TAZ 2.25G PREMIX 50 ML IV SCH ×2 (13:06→23:23)
[2018-10-17 16:00] VITALS: BP 138/69
[2018-10-17] MEDS ORDERED: LACTULOSE 20G/30ML UDC PO SCH (17:00)
[2018-10-17] MEDS ORDERED: HEPARIN SODIUM 1,000 UNIT/1ML VIAL IV ONE (17:15)
[2018-10-17] MEDS: ENOXAPARIN 30MG/0.3ML SYR SUBCUT SCH (18:11)
[2018-10-17 20:00] VITALS: BP 127/57
[2018-10-17] MEDS: ZOLPIDEM TARTRATE 5MG TABLET PO PRN (23:23)
[2018-10-18 00:03] VITALS: BP 107/57
[2018-10-18 04:00] VITALS: BP 137/69
[2018-10-18] MEDS: SODIUM HYPOCHLORITE 0.125% 473ML SOLUTION TOP SCH (05:15)
[2018-10-18] MEDS: MORPHINE SULFATE 2 MG/ML CPJ (NOT FOR IM USE) IV PRN (05:44)
[2018-10-18 07:58] VITALS: BP 124/69
[2018-10-18 10:28] VITALS: BP 124/69
[2018-10-18 11:02] VITALS: BP 124/69
[2018-10-18] MEDS: HYDROCODONE/ACETAMINOPHEN 5/325MG TABLET PO PRN (11:02)
== END 2018-10-18 11:20 | DRG 710 ==
LOC: ER 15:08 → 7WST 19:41 → EDBEDREQSVC 19:45 → EDBEDREQ 19:45 → EDBEDREQTM 19:45 → ENRESERV 20:45
PROVIDERS: ADMIT Internal Medicine; ATTEND Internal Medicine
PROC: 0QB10ZZ Excision of Sacrum, Open Approach (ICD-10-PCS; principal; 2018-10-17)
PROC: 5A1D70Z Performance of Urinary Filtration, Intermittent, Less than 6 Hours Per Day (ICD-10-PCS; 2018-10-17)
DX: A41.51 Sepsis due to Escherichia coli [E. coli] (principal); R65.21 Severe sepsis with septic shock; E43 Unspecified severe protein-calorie malnutrition; I13.2 Hypertensive heart and chronic kidney disease with heart failure and with stage 5 chronic kidney disease, or end stage renal disease; L89.154 Pressure ulcer of sacral region, stage 4; N18.6 End stage renal disease; E87.8 Other disorders of electrolyte and fluid balance, not elsewhere classified; I07.1 Rheumatic tricuspid insufficiency; I50.23 Acute on chronic systolic (congestive) heart failure; I27.20 Pulmonary hypertension, unspecified; E87.1 Hypo-osmolality and hyponatremia; D64.9 Anemia, unspecified; L03.90 Cellulitis, unspecified; F32.9 Major depressive disorder, single episode, unspecified; E66.9 Obesity, unspecified; I42.9 Cardiomyopathy, unspecified; Z16.12 Extended spectrum beta lactamase (ESBL) resistance; X58.XXXD Exposure to other specified factors, subsequent encounter; S72.112G Displaced fracture of greater trochanter of left femur, subsequent encounter for closed fracture with delayed healing; Z89.611 Acquired absence of right leg above knee; Z99.2 Dependence on renal dialysis; Z86.73 Personal history of transient ischemic attack (TIA), and cerebral infarction without residual deficits; Z68.26 Body mass index [BMI] 26.0-26.9, adult; Z79.899 Other long term (current) drug therapy
CPT/HCPCS: 36415; 71045; 72170; 73503; 80048; 80202; 83605; 83735; 84134; 84145; 84484; 87070; 87075; 87077; 87186; 93005; 93306; 93970; 99285; A6261; J0885; J1644; J1650; J2270; J2543; J3370; J3490; J7030; J7050; J7060

== ENCOUNTER 2019-01-19 20:40 | Emergency (ER) | payer MEDICAID ==
[~2019-01-19] VITALS: Ht 177.8 cm; Wt 77.0 kg
[~2019-01-19 20:40] MED LIST changes: +ALPR-339 PO; -AMLO5TAB88 PO; -ASCO125T PO; -BISA10SU62 RC; -CLON0.1T PO; +GABA-531 PO; -HYDR-4001 PO; -IPRA3AMP31 IH; +LEVO100T9 PO; -LOSA25TA26 PO; +METO-539 PO; -MOM PO; -NEPVIT PO; -ONDA4TAB11 PO; -[UNRECOGNIZED DRUG - CODE] OP
[2019-01-19] MEDS ORDERED: HYDROCODONE/ACETAMINOPHEN 5/325MG TABLET PO ONE (22:00)
[2019-01-20] MEDS ORDERED: HYDROCODONE/ACETAMINOPHEN 5/325MG TABLET PO ONE (07:15)
[2019-01-20 08:54] VITALS: BP 121/72
== END 2019-01-20 08:57 ==
LOC: ER 20:40
DX: S70.02XA Contusion of left hip, initial encounter (principal); S70.01XA Contusion of right hip, initial encounter; M54.5 Low back pain; I11.0 Hypertensive heart disease with heart failure; I50.9 Heart failure, unspecified; Z98.890 Other specified postprocedural states; Z89.611 Acquired absence of right leg above knee; Z99.2 Dependence on renal dialysis; Z86.73 Personal history of transient ischemic attack (TIA), and cerebral infarction without residual deficits; Z79.899 Other long term (current) drug therapy; W18.39XA Other fall on same level, initial encounter; Y93.89 Activity, other specified; Y92.89 Other specified places as the place of occurrence of the external cause; Y99.8 Other external cause status
CPT/HCPCS: 72100; 72170; 72192; 82962; 99284

== ENCOUNTER 2019-02-11 14:34 | Inpatient (IN) | payer MEDICAID ==
[~2019-02-11] VITALS: Ht 154.9 cm; Wt 85.3 kg
[~2019-02-11 14:34] MED LIST changes: -ACET-2178 PO; +TOPUD PO
[2019-02-11] MEDS ORDERED: NITROGLYCERIN 0.4MG TABLET SL SL PRN (16:15)
[2019-02-11 17:18] LABS: BASOPHILS % 0.4 % (0.0-2.0); EOSINOPHILS % 0.5 % (0.0-5.0); HEMATOCRIT. 36.2 % (36.0-48.0); HEMOGLOBIN. 11.6 g/dL (12.0-16.0); LYMPHOCYTES % 8.3 % (20.0-50.0); MEAN CORPUSCULAR VOLUME 103.1 fL (81.0-99.0); MEAN PLATELET VOLUME 7.5 fl (7.4-10.4); MONOCYTES % 4.2 % (2.0-8.0); NEUTROPHILS % 86.6 % (40.0-76.0); PLATELET 185 x1000/uL (130-400); RED BLOOD CELL COUNT 3.51 mill/uL (4.2-5.4); RED CELL DISTRIBUTION WIDTH 22.4 % (11.6-14.6)
[2019-02-11 17:23] LABS: CHLORIDE 96 mEq/L (98-107)
[2019-02-11 17:31] LABS: PLATELET ESTIMATE NORMAL
[2019-02-11] MEDS ORDERED: ASPIRIN 81MG TABLET PO ONE ×2 (18:00→20:30)
[2019-02-11] MEDS ORDERED: ACETAMINOPHEN 325MG TABLET PO ONE (20:30)
[2019-02-11 22:00] VITALS: BP 98/59
[2019-02-11] MEDS ORDERED: ZOLPIDEM TARTRATE 5MG TABLET PO PRN (23:30)
[2019-02-11] MEDS ORDERED: HYDROCODONE/ACETAMINOPHEN 5/325MG TABLET PO PRN (23:30)
[2019-02-11] MEDS: DIPHENHYDRAMINE 25MG CAPSULE PO PRN (23:51)
[2019-02-12] VITALS: BP 99/72
[2019-02-12 04:00] VITALS: BP 96/71
[2019-02-12] MEDS: DIPHENHYDRAMINE 25MG CAPSULE PO PRN (05:34)
[2019-02-12] MEDS: BLOOD SUGAR DIAGNOSTIC STRIP TEST SCH ×4 (05:52→20:41)
[2019-02-12] MEDS: INSULIN LISPRO 100 UNITS/ML SUBCUT SCH ×4 (05:53→20:52)
[2019-02-12 08:30] VITALS: BP 92/53
[2019-02-12] MEDS: HYDROCODONE/ACETAMINOPHEN 5/325MG TABLET PO PRN ×2 (10:13→21:01)
[2019-02-12 12:00] VITALS: BP 102/67
[2019-02-12] MEDS ORDERED: INFLUENZA VIRUS VACCINE(AFLURIA) 0.5ML SYR IM ONE (12:00)
[2019-02-12] MEDS ORDERED: LIDOCAINE HCL/EPINEPHRINE 1%-EPI 1:100,000 20 ML VIAL INFIL NR (12:45)
[2019-02-12 16:00] VITALS: BP 100/74
[2019-02-12 20:00] VITALS: BP 99/59
[2019-02-12] MEDS: METOPROLOL TARTRATE 25MG TABLET PO SCH (20:54)
[2019-02-13] VITALS (37 sets, daily range): BP systolic 48–173; BP diastolic 20–114
[2019-02-13] MEDS: DIPHENHYDRAMINE 25MG CAPSULE PO PRN (01:50)
[2019-02-13] MEDS: DEXTROSE 50% WATER 50ML SYRINGE IV PRN ×3 (06:37→15:43)
[2019-02-13] MEDS: BLOOD SUGAR DIAGNOSTIC STRIP TEST SCH ×5 (07:40→22:31)
[2019-02-13] MEDS: INSULIN LISPRO 100 UNITS/ML SUBCUT SCH ×4 (08:10→20:50)
[2019-02-13] MEDS: METOPROLOL TARTRATE 25MG TABLET PO SCH (09:00)
[2019-02-13] MEDS: HYDROCODONE/ACETAMINOPHEN 5/325MG TABLET PO PRN (11:44)
[2019-02-13] MEDS ORDERED: LORAZEPAM 2MG/ML CPJ IV ONE (12:45)
[2019-02-13] MEDS ORDERED: PROPOFOL 10MG/ML 100ML 100 ML IV PRN (14:00)
[2019-02-13] MEDS ORDERED: LIDOCAINE HCL 1% 20ML VIAL (Pyxis) INJ ONE (14:11)
[2019-02-13] MEDS ORDERED: SODIUM BICARBONATE 4% (2.4MEQ) 5ML VIAL IV ONE (14:11)
[2019-02-13 14:34] LABS: BG BASE EXCESS -15.3 mmol/L (-2.0-2.0); BG DEOXYHEMOGLOBIN 0.3 % (0.0-5.0); BG HCO3 ACT 12.5 mmol/L (22.0-26.0); BG METHEMOGLOBIN 0.3 % (0.0-1.5); BG OXYGEN SATURATION 99.7 % (92.0-98.5); BG OXYHEMOGLOBIN 98.4 % (94.0-97.0); BG PCO2 36.2 mmHg (35.0-45.0); BG PH 7.155 (7.350-7.450); BG SAMPLE SITE RIGHT RADIAL; BG TIDAL VOLUME(mL) 550 mL; BG TOTAL HEMOGLOBIN 11.7 g/dL (12.0-18.0); BG VENT MODE VENT - A/C; BG VENT RATE 18 set
[2019-02-13] MEDS ORDERED: DEXTROSE 50% WATER 50ML SYRINGE IV ONE (14:37)
[2019-02-13] MEDS ORDERED: SODIUM BICARBONATE 8.4% 1 MEQ/ML 50ML SYR IV ONE (14:39)
[2019-02-13] MEDS ORDERED: DEXTROSE 50% WATER 50ML SYRINGE IV NR (14:45)
[2019-02-13] MEDS ORDERED: NOREPINEPHRINE 16 MG in DEXT 5% WATER 484 ML IV PRN (15:00)
[2019-02-13] MEDS ORDERED: SODIUM BICARBONATE 8.4% 1 MEQ/ML 50ML SYR IV NR (15:00)
[2019-02-13] MEDS ORDERED: HEPARIN 100 UNITS/1 ML VIAL IVF PRN (15:00)
[2019-02-13] MEDS ORDERED: ALBUMIN HUMAN 25GM/500ML (5%) IV NR (15:00)
[2019-02-13] MEDS ORDERED: VECURONIUM BROMIDE 10 MG/VIAL IV ONE (15:14)
[2019-02-13] MEDS ORDERED: ETOMIDATE 2MG/ML 10ML VIAL IV ONE (15:14)
[2019-02-13] MEDS ORDERED: DEXTROSE 20% WATER 500 ML IV SCH (16:00)
[2019-02-13] MEDS: PIPERACILLIN/TAZOBACTAM 3.375 G in DEXT 5% WATER 100 ML IV SCH ×2 (16:04→21:51)
[2019-02-13] MEDS: PHENYLEPHRINE 40 MG in DEXT 5% WATER 246 ML IV PRN ×2 (16:05→20:51)
[2019-02-13] MEDS ORDERED: IPRATROPIUM/ALBUTEROL 0.5-3(2.5)MG/3ML NEB HHN PRN (16:30)
[2019-02-13] MEDS ORDERED: DEXTROSE 50% WATER 50ML SYRINGE IV PRN (16:30)
[2019-02-13] MEDS ORDERED: BLOOD SUGAR DIAGNOSTIC STRIP TEST SCH (16:30)
[2019-02-13] MEDS ORDERED: FAMOTIDINE 20MG/2ML VIAL IV SCH (16:30)
[2019-02-13] MEDS ORDERED: PANTOPRAZOLE SODIUM 40 MG/VIAL IV SCH (17:00)
[2019-02-13 17:17] LABS: INR 2.2
[2019-02-13 17:21] LABS: HEMATOCRIT. 35.7 % (36.0-48.0); HEMOGLOBIN. 10.7 g/dL (12.0-16.0); MEAN CORPUSCULAR HEMOGLOBIN 32.7 pg (28.0-32.0); MEAN PLATELET VOLUME 8.8 fl (7.4-10.4); PLATELET 107 x1000/uL (130-400); RED BLOOD CELL COUNT 3.28 mill/uL (4.2-5.4); RED CELL DISTRIBUTION WIDTH 23.5 % (11.6-14.6)
[2019-02-13 17:24] LABS: CHLORIDE 97 mEq/L (98-107)
[2019-02-13 17:34] LABS: CREATINE KINASE 126 IU/L (26-192)
[2019-02-13 17:37] LABS: CREATINE KINASE MB FRACTION 3.2 ng/mL (0.5-3.6)
[2019-02-13] MEDS ORDERED: VANCOMYCIN 1500MG in DEXTROSE 5% WATER 250ML IV SCH (18:00)
[2019-02-13] MEDS ORDERED: IPRATROPIUM/ALBUTEROL 0.5-3(2.5)MG/3ML NEB HHN SCH (18:00)
[2019-02-13] MEDS: SUCRALFATE 1 G/10 ML UDC NG SCH ×2 (18:07→21:48)
[2019-02-13 18:38] LABS: ATYPICAL LYMPHOCYTES 4; NUCLEATED RED BLOOD CELLS 6 /100 WBC; PLATELET ESTIMATE DECREASED
[2019-02-13] MEDS: VASOPRESSIN 10 UNIT in SODIUM CHLORIDE 0.9% 99.5 ML IV PRN ×2 (18:51→22:48)
[2019-02-13] MEDS ORDERED: PHENYLEPHRINE 40 MG in DEXT 5% WATER 496 ML IV PRN (20:17)
[2019-02-13 20:47] LABS: HEMATOCRIT 43.5 % (36.0-48.0); HEMOGLOBIN 12.1 g/dL (12.0-16.0)
[2019-02-13] MEDS ORDERED: METOPROLOL TARTRATE 25MG TABLET PO SCH (21:00)
[2019-02-13] MEDS ORDERED: PHENYLEPHRINE 80 MG in DEXT 5% WATER 492 ML IV PRN (22:54)
[2019-02-14] VITALS: BP 88/73
[2019-02-14 00:15] VITALS: BP 56/22
[2019-02-14 00:30] VITALS: BP 81/34
[2019-02-14 00:38] VITALS: BP 48/32
[2019-02-14 00:40] VITALS: BP 41/14
[2019-02-14] MEDS ORDERED: SODIUM BICARBONATE 8.4% 1 MEQ/ML 50ML SYR IV SCH (00:45)
[2019-02-14] MEDS ORDERED: DEXTROSE 50% WATER 50ML VIAL IV ONE (01:05)
== END 2019-02-14 01:05 | disposition expired | DRG 710 ==
LOC: ER 14:34 → 7WST 18:37 → EDBEDREQ 18:41 → ENRESERV 20:32 → CVICU 02-13 13:46
PROVIDERS: ADMIT Internal Medicine; ATTEND Internal Medicine
PROC: 0QB30ZZ Excision of Left Pelvic Bone, Open Approach (ICD-10-PCS; principal; 2019-02-12)
PROC: 0QB10ZZ Excision of Sacrum, Open Approach (ICD-10-PCS; 2019-02-12)
PROC: 5A1D70Z Performance of Urinary Filtration, Intermittent, Less than 6 Hours Per Day (ICD-10-PCS; 2019-02-12)
PROC: 02HV33Z Insertion of Infusion Device into Superior Vena Cava, Percutaneous Approach (ICD-10-PCS; 2019-02-13)
PROC: B548ZZA Ultrasonography of Superior Vena Cava, Guidance (ICD-10-PCS; 2019-02-13)
DX: A41.9 Sepsis, unspecified organism (principal); J96.00 Acute respiratory failure, unspecified whether with hypoxia or hypercapnia; R65.21 Severe sepsis with septic shock; I13.2 Hypertensive heart and chronic kidney disease with heart failure and with stage 5 chronic kidney disease, or end stage renal disease; E43 Unspecified severe protein-calorie malnutrition; L89.154 Pressure ulcer of sacral region, stage 4; J18.1 Lobar pneumonia, unspecified organism; L89.324 Pressure ulcer of left buttock, stage 4; E66.01 Morbid (severe) obesity due to excess calories; I08.2 Rheumatic disorders of both aortic and tricuspid valves; E11.22 Type 2 diabetes mellitus with diabetic chronic kidney disease; E11.51 Type 2 diabetes mellitus with diabetic peripheral angiopathy without gangrene; I27.20 Pulmonary hypertension, unspecified; N18.6 End stage renal disease; D63.8 Anemia in other chronic diseases classified elsewhere; E11.65 Type 2 diabetes mellitus with hyperglycemia; I25.10 Atherosclerotic heart disease of native coronary artery without angina pectoris; E03.9 Hypothyroidism, unspecified; E11.649 Type 2 diabetes mellitus with hypoglycemia without coma; F32.9 Major depressive disorder, single episode, unspecified; I42.9 Cardiomyopathy, unspecified; M84.452A Pathological fracture, left femur, initial encounter for fracture; I50.43 Acute on chronic combined systolic (congestive) and diastolic (congestive) heart failure; K92.2 Gastrointestinal hemorrhage, unspecified; L03.90 Cellulitis, unspecified; Z79.890 Hormone replacement therapy; Z99.2 Dependence on renal dialysis; Z89.611 Acquired absence of right leg above knee; Z86.73 Personal history of transient ischemic attack (TIA), and cerebral infarction without residual deficits; Z79.899 Other long term (current) drug therapy
CPT/HCPCS: 36415; 36600; 71045; 76937; 82375; 82533; 82550; 82553; 82805; 82962; 83880; 84145; 84484; 85014; 85018; 87070; 87077; 87106; 87186; 90686; 93005; 93306; 93970; 94002; 94640; 99285; C1725; C9113; J2060; J2370; J2543; J2704; J3370; J3490; J7040; J7050; J7060; J7620; P9041; Q0163